=== PATIENT | female | born 1955 | race Caucasian/White ===

== ENCOUNTER 2021-02-22 10:44 | Outpatient (REF) | payer BC, SELFPAY ==
[2021-02-22 14:35] LABS: Cholesterol 231 mg/dL; HDL Cholesterol 71 mg/dL; LDL Cholesterol Calculated 149 mg/dl; Triglycerides 59 mg/dL
[2021-02-22 14:57] LABS: Vitamin D 25-OH Total 44.1 ng/mL (>30)
[2021-02-25 13:40] LABS: Calcium (PTHI) 8.9 mg/dL (8.6-10.4); PTHI 38 pg/mL (14-64)
== END 2021-02-22 10:45 | disposition home or self-care (01) ==
LOC: HO.HMGCLDS 10:44
PROVIDERS: PCP Nurse Practitioner Adult Health; Visit Provider Nurse Practitioner Adult Health
DX: Z00.00 Encounter for general adult medical examination without abnormal findings (principal); Z12.11 Encounter for screening for malignant neoplasm of colon; M81.0 Age-related osteoporosis without current pathological fracture; E55.9 Vitamin D deficiency, unspecified
CPT/HCPCS: 36415; 80061; 82306; 83970

== ENCOUNTER 2021-03-30 09:58 | Outpatient (REF) | payer BC, SELFPAY ==
[2021-03-30 11:31] LABS: Anion Gap 13 (12-20); Blood Urea Nitrogen 9 mg/dL (9-16); Carbon Dioxide 24 mmol/L (22-29); Chloride 107 mmol/L (96-108); Estimated Glomerular Filt Rate > 60; Glucose Random 92 mg/dL (60-115); Potassium 4.2 mmol/L (3.3-5.1); Sodium 140 mmol/L (135-145)
== END 2021-03-30 09:59 | disposition home or self-care (01) ==
LOC: HO.HMGCLDS 09:58
PROVIDERS: PCP Nurse Practitioner Adult Health; Visit Provider Nurse Practitioner Adult Health
DX: Z12.11 Encounter for screening for malignant neoplasm of colon (principal); I10 Essential (primary) hypertension
CPT/HCPCS: 36415; 80048

== ENCOUNTER 2021-04-01 | Outpatient (REF) | payer BC, SELFPAY ==
[2021-04-02 15:18] LABS: FIT1 NEGATIVE (NEGATIVE); FIT2 POSITIVE (NEGATIVE)
[2021-04-02 15:19] LABS: FIT Int Ctl YES
== END 2021-04-01 00:01 | disposition home or self-care (01) ==
LOC: HO.LNP
PROVIDERS: Visit Provider Nurse Practitioner Adult Health
DX: Z12.11 Encounter for screening for malignant neoplasm of colon (principal)
CPT/HCPCS: 82274

== ENCOUNTER 2021-08-07 18:04 | Observation (INO) | payer BC, SELFPAY ==
[2021-08-07] VITALS (7 sets, daily range): BP systolic 106–138; BP diastolic 50–88; PULSE 58–71; RESP 15–20; TEMP 36.8; O2SAT 97–100; BMI 25.3
--- NOTE | ~2021-08-07 | XR_ITS ---
EXAMINATION: XR CHEST CLINICAL INFORMATION: Syncopal episode. COMPARISON: None. TECHNIQUE: AP view of the chest was obtained. FINDINGS: Normal cardiomediastinal silhouette. Increased interstitial prominence more noticeable in the lower lungs. No pleural effusions or pneumothorax. No acute osseous abnormalities. Visualized upper abdomen is within normal limits. XR/XR chest 1V IMPRESSION: Mildly increased interstitial prominence in the lower lungs, right greater than left which are nonspecific and could be associated with subsegmental atelectasis or bronchial wall thickening in the setting of asthma, bronchitis, reactive airways disease or atypical infections. No focal consolidation.
--- NOTE | ~2021-08-07 | CT_ITS ---
EXAMINATION: CT HEAD WITHOUT CONTRAST CT CERVICAL SPINE WITHOUT CONTRAST CLINICAL INFORMATION: Reason for Exam syncope. +hit head COMPARISON: CT of the head done on 06/14/2011. TECHNIQUE: Imaging was performed from the skull base to vertex without intravenous administration of contrast. In addition, helical noncontrast CT imaging was acquired through the cervical spine and source images were reviewed along with axial reconstructions and sagittal and coronal MPRs. This CT examination was performed using dose optimization techniques as appropriate, variously including the following: *Automated exposure control. *Adjustment of mA and/or kV according to patient size (this includes techniques or standardized protocols for targeted exams where dose is matched to indication/reason for exam; i.e. extremities or head). *Use of iterative reconstruction technique. Total exam dose-length product 936.0 mGy-cm FINDINGS: HEAD: No intracranial mass, hemorrhage, or midline shift is visualized. The ventricles and sulci are age-appropriate. No extra-axial collections are identified. Stable prominent extra-axial space is noted around both frontal lobes, unchanged since 06/14/2011. The paranasal sinuses and mastoid air cells are well aerated. CERVICAL SPINE: Reversal of midcervical lordosis and moderate to severe multilevel degenerative spondylosis related changes are noted at C4-C5 and C5-C6 and C6-C7. Moderate diffuse osteopenia. 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 There is no evidence of acute cervical spine fracture. Vertebral bodies remain normal in height, and alignment is anatomic. No prevertebral or paravertebral soft tissue abnormality is identified. Limited assessment of the lung apices is remarkable for presence of biapical pleuroparenchymal opacities, most consistent with pleural parenchymal scar. Note is also made of underlying emphysematous disease within the visualized both lung apices. CT/CT cervical spine wo con IMPRESSION: 1. No acute intracranial pathology. Stable prominent extra-axial space around both frontal lobes, unchanged since 06/14/2011. 2. No CT evidence of acute cervical spine fracture or traumatic subluxation.
--- NOTE | 2021-08-07 18:37 | ECG_ITS ---
Test Reason : SYNCOPE Blood Pressure : / mmHG Vent. Rate : 064 BPM Atrial Rate : 064 BPM P-R Int : 128 ms QRS Dur : 100 ms QT Int : 396 ms P-R-T Axes : 057 061 070 degrees QTc Int : 408 ms Normal sinus rhythm Normal ECG When compared with ECG of 13-AUG-2003 01:05, No significant change was found Referred By: Erica Monge Electronically Signed By:GISELA BURROWS
--- NOTE | 2021-08-07 19:05 | ED_ITS ---
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 reports went inside and laid down then returned outside to farm, and felt lightheaded, sat on stool and syncopized with +head injury. Patient does not remember all events, heard fall and found patient on ground. Denies taking anticoagulation. Denies headache being maximal at onset, or headache at present, denies lightheadedness at present. Also reports exertional SOB, chest discomfort and nausea. Denies fever, chills, vision change/loss, abdominal pain, fever/chills MD elicited complaint: lightheadedness Related Data Home Medications Medication Instructions Recorded Confirmed carisoprodol 350 mg tablet 1 tab PO BEDTIME PRN 08/07/21 08/07/21 cholecalciferol (vitamin D3) 50 50 mcg PO DAILY 08/07/21 08/07/21 mcg (2,000 unit) tablet lisinopril 5 mg tablet 1 tab PO DAILY 08/07/21 08/07/21 Allergies Allergy/AdvReac Type Severity Reaction Status Date / Time morphine Allergy Unknown Itchiness Verified 01/31/19 00:00 From DURAMORPH Allergy Severe HIVES Uncoded 03/22/20 15:09 Effexor Allergy Unknown Itchiness Uncoded 01/31/19 00:00 Flexeril Allergy Unknown Itchiness Uncoded 01/31/19 00:00 From EFFEXOR Allergy Unknown UNKNOWN Uncoded 03/22/20 15:09 Review of Systems Verdana 4l Review of Systems: Verdana 4d Verdana 4d Constitutional: No Fever, No Chills, No Fatigue, No Malaise ENT/Mouth: No Ear Pain, No Nasal Congestion, No sore throat, No Swallowing Difficulty Eyes: No Eye Pain, No Swelling, No Vision Changes Cardiovascular: + Chest Pain, + SOB, No EdemaEdema, No Palpitations Respiratory: No Cough, No Dyspnea Gastrointestinal: + Nausea, No Vomiting, No Diarrhea, No Constipation, No Abdominal pain Genitourinary: No Dysuria, No Urinary Frequency, No Urgency, No Urinary Flow Changes Musculoskeletal: No joint pain, No Myalgias, No Joint Swelling Skin: No Skin Lesions, No rash Neuro: No Weakness, No Numbness, + Paresthesias, + Loss of Consciousness, + Lightheadedness, + Headache Yes all other systems are reviewed and are negative Neurologic: Denies Abnormal speech present FORMERLY [facility], [facility]–1983 Past Medical History Attestation statement: The following information was validated with the patient. Social History Social History Advance Directives: No Advance Directives Information Provided: No Patient : No Physical Exam Verdana 4l Vital Signs: Verdana 4d Verdana 4d Vital Signs: Verdana 4d Verdana 4Bd Last Vital Signs Verdana 4d Credit Card Interviewer New 4d Credit Card Interviewer New 4d Temp 98.3 F 08/07/21 21:27 Credit Card Interviewer New 4d Pulse 58 08/07/21 23:22 Credit Card Interviewer New 4d Resp 16 08/07/21 23:22 BP 106/88 08/07/21 23:22 Pulse Ox 97 08/07/21 23:22 BMI result Body Mass Index 25.3 Const: General: cooperative, healthy appearing, comfortable, no acute distress, well developed, alert and awake Orientation/consciousness: patient oriented x3 Limitations: no limitations HENMT: Other: Small abrasion to right side of nose Head: Yes normal to inspection and Yes atraumatic Ears: hearing grossly normal bilaterally General nose exam: Normal external nose present Face and sinus: Yes normal facial exam Throat: Yes posterior oropharynx normal, Yes tonsils normal and Yes uvula midline Eyes: General: appearance normal, both eyes and all related structures EOM: EOMs intact bilaterally Neck: Other: No midline cervical spinous tenderness Neck: Yes normal visual inspection, Yes full ROM and Yes no meningeal signs Chest: Chest palpation & inspection: normal inspection of the chest, no crepitus and no tenderness Resp: Effort & Inspection: normal respiratory effort Auscultation: clear to auscultation bilaterally, no rales, no rhonchi and no wheezes Cardio: Rate: regular rate Heart sounds: S1 normal heart sound present and S2 normal heart sound present GI: Inspection: Yes normal to inspection Palpation (GI): Soft to palpation, nontender, no guarding and not rigid Skin: Rashes: no rashes Neuro: General: patient oriented x3, gait normal, tone normal, moves all extremities, no meningeal signs, no focal motor deficits and CN's II-XI intact bilaterally Cranial nerves: Yes CN's II-XII intact bilaterally and Yes Bilaterally intact EOM present Cognition (Neuro): normal cognition Speech: No Abnormal speech present Motor exam (neuro): 5/5 motor strength present throughout, Pronator motor function not present and no tremor noted Coordination: [id number] test normal Romberg Test: Negative Extrem: General: Yes normal to inspection and Yes no pedal edema Course Course Course Narrative: -1932--XR chest 1V IMPRESSION: Mildly increased interstitial prominence in the lower lungs, right greater than left which are nonspecific and could be associated with subsegmental atelectasis or bronchial wall thickening in the setting of asthma, bronchitis, reactive airways disease or atypical infections. No focal consolidation. -2029--no leukocytosis. H&H stable. Labs otherwise unremarkable. Troponin 3.9 > will obtain 3 hour repeat. Labs otherwise unremarkable. UA negative -orthostatic vital signs negative CT head/brain wo con/CT cervical spine wo con IMPRESSION: 1. No acute intracranial pathology. Stable prominent extra-axial space around both frontal lobes, unchanged since 06/14/2011. 2. No CT evidence of acute cervical spine fracture or traumatic subluxation. >2132--on re-evaluation patient reports slight symptomatic improvement. Admits has been increasingly SOB recently. 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 reports went inside and laid down then returned outside to fa , and felt lightheaded, sat on stool and syncopized with +head injury. On exam vital signs stable, NAD/nontoxic appearing, no focal neuro deficits. Concern for metabolic/infectious etiology vs ACS vs vasovagal vs ICH. Lower concern for SAH Plan: EKG, labs, UA, head/C-spine CT, CXR, IVF, orthostatics, re-evaluate Medical Records Attestation: I reviewed the patient's medical records. Lab Data Attestation: I reviewed the patient's lab results. Result diagrams: 08/07/21 19:30 08/07/21 19:30 Labs: Lab Results 08/07/21 08/07/21 08/07/21 Range/Units 19:28 19:30 19:30 WBC 10.2 (4.8-10.8) X10*3/uL RBC 4.41 (4.20-5.50) X10*6/uL Hgb 13.5 (12.0-16.0) g/dl Hct 39.6 (37.0-47.0) % MCV 89.8 (80.0-98.0) fL MCH 30.6 (27.0-33.0) pg MCHC 34.1 (31.0-35.0) g/dl RDW 11.8 (11.0-16.0) % Plt Count 289 (160-400) X10*3/uL MPV 9.4 (9.4-12.3) fL Immature Gran % (Auto) 0.4 (0.0-0.4) % Neut % (Auto) 80.2 H (45-73) % Lymph % (Auto) 13.3 L (20-40) % [place] % (Auto) 5.2 (2-11) % Eos % (Auto) 0.3 (0-4) % Baso % (Auto) 0.6 (0-2) % Lymph # (Auto) 1.4 (1.2-4.9) X10*3/uL [place] # (Auto) 0.5 (0.1-1.2) X10*3/uL Eos # (Auto) 0.0 (0.0-0.4) X10*3/uL Baso # (Auto) 0.1 (0.0-0.2) X10*3/uL Abs Immat Gran (auto) 0.04 H (0.00-0.03) X10*3/uL Absolute Neuts (auto) 8.2 (2.0-8.3) x10*3/uL Absolute Nucleated RBC 0.000 (0.0-0.012) X10*3/uL Nucleated RBC % (auto) 0.0 (0.0-0.2) /100WBC D-Dimer High Sensitivty NG/ML Sodium 138 (135-145) mmol/L Potassium 4.1 (3.3-5.1) mmol/L Chloride 106 (96-108) mmol/L Carbon Dioxide 28 (22-29) mmol/L Anion Gap 8 L (12-20) BUN 13 (9-16) mg/dL Creatinine 0.72 (0.5-1.4) mg/dL Estim Creat Clear Calc 68.7 Estimated GFR > 60 Random Glucose 90 (60-115) mg/dL Calcium 8.8 (8.4-10.2) mg/dL Magnesium 1.9 (1.6-2.6) mg/dL Total Bilirubin 0.5 (0.0-1.0) mg/dL Direct Bilirubin 0.2 (0.0-0.5) mg/dL AST 15 (5-31) U/L ALT 12 (0-31) U/L Alkaline Phosphatase 52 (39-117) U/L Troponin I High Sens (<3.5-17.0) ng/L B-Natriuretic Peptide (<100) pg/mL Total Protein 6.4 L (6.5-8.0) g/dL Albumin 3.7 (3.5-5.0) g/dL Lipase 16 (8-78) U/L TSH 1.92 (0.32-4.0) uIU/mL Urine Color Urine Appearance Urine pH (5.0-8.0) Ur Specific [place] (1.005-1.025) Urine Protein (NEG-TRACE) MG/DL Urine Glucose (UA) (NEG) MG/DL Urine Ketones (NEG) MG/DL Urine Blood (NEG) Urine Nitrite (NEG) Ur Leukocyte Esterase (NEG) Urine RBC (0) /HPF Urine WBC (0-4) /HPF Ur Squamous Epith Cells /LPF Urine Bacteria /LPF COVID-19 (RADHA) Negative (Negative) COVID-19 Clin Com See Note 08/07/21 08/07/21 08/07/21 Range/Units 19:30 19:45 23:01 WBC (4.8-10.8) X10*3/uL RBC (4.20-5.50) X10*6/uL Hgb (12.0-16.0) g/dl Hct (37.0-47.0) % MCV (80.0-98.0) fL MCH (27.0-33.0) pg MCHC (31.0-35.0) g/dl RDW (11.0-16.0) % Plt Count (160-400) X10*3/uL MPV (9.4-12.3) fL Immature Gran % (Auto) (0.0-0.4) % Neut % (Auto) (45-73) % Lymph % (Auto) (20-40) % [place] % (Auto) (2-11) % Eos % (Auto) (0-4) % Baso % (Auto) (0-2) % Lymph # (Auto) (1.2-4.9) X10*3/uL [place] # (Auto) (0.1-1.2) X10*3/uL Eos # (Auto) (0.0-0.4) X10*3/uL Baso # (Auto) (0.0-0.2) X10*3/uL Abs Immat Gran (auto) (0.00-0.03) X10*3/uL Absolute Neuts (auto) (2.0-8.3) x10*3/uL Absolute Nucleated RBC (0.0-0.012) X10*3/uL Nucleated RBC % (auto) (0.0-0.2) /100WBC D-Dimer High Sensitivty NG/ML Sodium (135-145) mmol/L Potassium (3.3-5.1) mmol/L Chloride (96-108) mmol/L Carbon Dioxide (22-29) mmol/L Anion Gap (12-20) BUN (9-16) mg/dL Creatinine (0.5-1.4) mg/dL Estim Creat Clear Calc Estimated GFR Random Glucose (60-115) mg/dL Calcium (8.4-10.2) mg/dL Magnesium (1.6-2.6) mg/dL Total Bilirubin (0.0-1.0) mg/dL Direct Bilirubin (0.0-0.5) mg/dL AST (5-31) U/L ALT (0-31) U/L Alkaline Phosphatase (39-117) U/L Troponin I High Sens 3.9 4.3 (<3.5-17.0) ng/L B-Natriuretic Peptide 28 (<100) pg/mL Total Protein (6.5-8.0) g/dL Albumin (3.5-5.0) g/dL Lipase (8-78) U/L TSH (0.32-4.0) uIU/mL Urine Color YELLOW Urine Appearance CLEAR Urine pH 5.5 (5.0-8.0) Ur Specific [place] 1.015 (1.005-1.025) Urine Protein NEG (NEG-TRACE) MG/DL Urine Glucose (UA) NEG (NEG) MG/DL Urine Ketones NEG (NEG) MG/DL Urine Blood NEG (NEG) Urine Nitrite NEG (NEG) Ur Leukocyte Esterase 1+ H (NEG) Urine RBC 0 (0) /HPF Urine WBC 1-4 (0-4) /HPF Ur Squamous Epith Cells 1+ /LPF Urine Bacteria 1+ /LPF COVID-19 (RADHA) (Negative) COVID-19 Clin Com 08/07/21 Range/Units 23:01 WBC (4.8-10.8) X10*3/uL RBC (4.20-5.50) X10*6/uL Hgb (12.0-16.0) g/dl Hct (37.0-47.0) % MCV (80.0-98.0) fL MCH (27.0-33.0) pg MCHC (31.0-35.0) g/dl RDW (11.0-16.0) % Plt Count (160-400) X10*3/uL MPV (9.4-12.3) fL Immature Gran % (Auto) (0.0-0.4) % Neut % (Auto) (45-73) % Lymph % (Auto) (20-40) % [place] % (Auto) (2-11) % Eos % (Auto) (0-4) % Baso % (Auto) (0-2) % Lymph # (Auto) (1.2-4.9) X10*3/uL [place] # (Auto) (0.1-1.2) X10*3/uL Eos # (Auto) (0.0-0.4) X10*3/uL Baso # (Auto) (0.0-0.2) X10*3/uL Abs Immat Gran (auto) (0.00-0.03) X10*3/uL Absolute Neuts (auto) (2.0-8.3) x10*3/uL Absolute Nucleated RBC (0.0-0.012) X10*3/uL Nucleated RBC % (auto) (0.0-0.2) /100WBC D-Dimer High Sensitivty < 150 NG/ML Sodium (135-145) mmol/L Potassium (3.3-5.1) mmol/L Chloride (96-108) mmol/L Carbon Dioxide (22-29) mmol/L Anion Gap (12-20) BUN (9-16) mg/dL Creatinine (0.5-1.4) mg/dL Estim Creat Clear Calc Estimated GFR Random Glucose (60-115) mg/dL Calcium (8.4-10.2) mg/dL Magnesium (1.6-2.6) mg/dL Total Bilirubin (0.0-1.0) mg/dL Direct Bilirubin (0.0-0.5) mg/dL AST (5-31) U/L ALT (0-31) U/L Alkaline Phosphatase (39-117) U/L Troponin I High Sens (<3.5-17.0) ng/L B-Natriuretic Peptide (<100) pg/mL Total Protein (6.5-8.0) g/dL Albumin (3.5-5.0) g/dL Lipase (8-78) U/L TSH (0.32-4.0) uIU/mL Urine Color Urine Appearance Urine pH (5.0-8.0) Ur Specific [place] (1.005-1.025) Urine Protein (NEG-TRACE) MG/DL Urine Glucose (UA) (NEG) MG/DL Urine Ketones (NEG) MG/DL Urine Blood (NEG) Urine Nitrite (NEG) Ur Leukocyte Esterase (NEG) Urine RBC (0) /HPF Urine WBC (0-4) /HPF Ur Squamous Epith Cells /LPF Urine Bacteria /LPF COVID-19 (RADHA) (Negative) COVID-19 Clin Com ECG Data Attestation: I personally reviewed and interpreted this ECG as follows: ECG interpretation date: 08/07/21 ECG interpretation time: 18:52 Prior ECG tracings: available for review Interpretation: EKG normal sinus rhythm at a rate of 64. NM interval 128. QRS 100. QTC 408. Unchanged from priors. No STEMI Discharge Plan Discharge Clinical Impression: Syncope Patient Disposition: Admitted As Inpatient
[2021-08-07] MEDS: 0.9 % Sodium Chloride 1,000 ML 999 ML IV (19:23)
[2021-08-07] MEDS: ondansetron HCL 4 MG/2 ML VIAL IVPUSH (19:25)
[2021-08-07 19:36] LABS: MANUAL DIFF FLAG NO
[2021-08-07 19:38] LABS: Basophils Absolute Auto 0.1 X10*3/uL (0.0-0.2); Basophils Percent Auto 0.6 % (0-2); Eosinophils Percent Auto 0.3 % (0-4); Hematocrit 39.6 % (37.0-47.0); Hemoglobin 13.5 g/dl (12.0-16.0); Imm Gran Abs Auto 0.04 X10*3/uL (0.00-0.03); Imm Gran Pct Auto 0.4 % (0.0-0.4); Lymphocytes Absolute Auto 1.4 X10*3/uL (1.2-4.9); Lymphocytes Percent Auto 13.3 % (20-40); Mean Corpuscular HGB Conc 34.1 g/dl (31.0-35.0); Mean Corpuscular Hemoglobin 30.6 pg (27.0-33.0); Mean Corpuscular Volume 89.8 fL (80.0-98.0); Mean Platelet Volume 9.4 fL (9.4-12.3); Monocytes Absolute Auto 0.5 X10*3/uL (0.1-1.2); Monocytes Percent Auto 5.2 % (2-11); Neutrophils Absolute Auto 8.2 x10*3/uL (2.0-8.3); Neutrophils Percent Auto 80.2 % (45-73); Platelet Count 289 X10*3/uL (160-400); Red Blood Count 4.41 X10*6/uL (4.20-5.50); Red Cell Distribution Width 11.8 % (11.0-16.0); White Blood Count 10.2 X10*3/uL (4.8-10.8)
[2021-08-07 19:51] LABS: COVID-19 Test Negative (Negative)
[2021-08-07 19:53] LABS: Appearance Urine CLEAR; Color Urine YELLOW; Glucose Urine UA NEG (NEG); Leukocyte Esterase Urine 1+ (NEG); Nitrite Urine NEG (NEG); PH 5.5 (5.0-8.0); Specific Gravity - Urine 1.015 (1.005-1.025); UACC Culture Trigger YES; Urine Blood NEG (NEG); Urine Ketones NEG (NEG); Urine Protein NEG (NEG-TRACE)
[2021-08-07 19:56] LABS: Alanine Aminotransferase 12 U/L (0-31); Albumin Level 3.7 g/dL (3.5-5.0); Alkaline Phosphatase 52 U/L (39-117); Anion Gap 8 (12-20); Aspartate Amino Transferase 15 U/L (5-31); Bilirubin Direct 0.2 mg/dL (0.0-0.5); Bilirubin Total 0.5 mg/dL (0.0-1.0); Blood Urea Nitrogen 13 mg/dL (9-16); Calcium 8.8 mg/dL (8.4-10.2); Carbon Dioxide 28 mmol/L (22-29); Chloride 106 mmol/L (96-108); Creatinine Clr Calc Pharmacy 68.7; Estimated Glomerular Filt Rate > 60; Glucose Random 90 mg/dL (60-115); Lipase 16 U/L (8-78); Magnesium 1.9 mg/dL (1.6-2.6); Potassium 4.1 mmol/L (3.3-5.1); Sodium 138 mmol/L (135-145); Total Protein 6.4 g/dL (6.5-8.0)
[2021-08-07 19:58] LABS: B Type Natriuretic Peptide 28 pg/mL (<100); Troponin-I High Sensitivity 3.9 ng/L (<3.5-17.0)
[2021-08-07 20:04] LABS: Bacteria Urine 1+ /LPF; RBC Urine 0 /HPF (0); Squamous Epithelial Cell Urine 1+ /LPF
--- NOTE | 2021-08-07 21:53 | PHA.MEDREC ---
Pharmacy Consult ? Medication Reconciliation Pharmacy has completed the medication reconciliation.
--- NOTE | 2021-08-07 22:50 | P.HPHOSP_ITS ---
History of Present Illness Date of Service: 08/07/21 Chief Complaint: Syncope 65-year-old female with a past medical history of hypertension presented to the hospital with a chief complaint of syncope. Patient reports that she has not been feeling well all day today. Has been having intermittent episodes of lightheadedness is dizziness. She took a nap and later when she was sitting in a chair she felt lightheaded and fell onto the ground, loss conscious briefly, no seizure-like activity, no confusion. Reports he has intermittent chest discomfort. Denies any numbness tingling or focal weakness. Denies any nausea vomiting or diarrhea. Denies any neck pain, back pain, hip pain. Review of all other systems is negative except mentioned above ER course: for ER team, patient's exam was nonfocal, CT head and CT cervical spine showed no acute findings. EKG nonischemic. Troponin negative. Admitted to the hospital for Further management PMFSH Pertinent family history: reviewed; Social History Advance Directives: No Advance Directives Information Provided: No Patient : No Meds Allergies Allergy/AdvReac Type Severity Reaction Status Date / Time morphine Allergy Unknown Itchiness Verified 01/31/19 00:00 From DURAMORPH Allergy Severe HIVES Uncoded 03/22/20 15:09 Effexor Allergy Unknown Itchiness Uncoded 01/31/19 00:00 Flexeril Allergy Unknown Itchiness Uncoded 01/31/19 00:00 From EFFEXOR Allergy Unknown UNKNOWN Uncoded 03/22/20 15:09 Active Medications: Current Medications Acetaminophen (Acetaminophen 325 Mg Tablet) 650 mg PO Q6H PRN PRN Reason: Pain, Mild (Pain Scale 1-3) Enoxaparin Sodium (Enoxaparin Sodium 40 Mg/0.4 Ml Syringe) 40 mg SUBCUT Q24H STAN Sodium Chloride (Ns) 1,000 mls @ 100 mls/hr IVCONT .Q10H STAN Melatonin (Melatonin 3 Mg Tablet) 6 mg PO BEDTIME PRN PRN Reason: Insomnia Pharmacy Consult (Consult Rx Perform Med Rec) 1 each MISCELLANE ONCE PRN PRN Reason: Consult order Senna (Sennosides 8.6 Mg Tablet) 17.2 mg PO BEDTIME PRN PRN Reason: Constipation Sodium Chloride (0.9 % Sodium Chloride Flush 3 Ml Syringe) 3 ml IVFLUSH QSHIFT STAN Home Medications Medication Instructions Recorded Confirmed Last Taken Type carisoprodol 350 1 tab PO BEDTIME 08/07/21 08/07/21 Unknown History mg tablet PRN cholecalciferol 50 mcg PO DAILY 08/07/21 08/07/21 08/07/21 History (vitamin D3) 50 mcg (2,000 unit) tablet lisinopril 5 mg 1 tab PO DAILY 08/07/21 08/07/21 08/07/21 History tablet Physical Exam Verdana 4l Vital Signs and Narrative: Verdana 4d Verdana 4d Vital Signs: Verdana 4d Verdana 4Bd Last Vital Signs Verdana 4d Oncology Rn New 4d Oncology Rn New 4d Temp 98.3 F 08/07/21 21:27 Oncology Rn New 4d Pulse 69 08/07/21 21:27 Oncology Rn New 4d Resp 20 08/07/21 21:27 BP 106/88 08/07/21 21:27 Pulse Ox 98 08/07/21 21:27 BMI result Body Mass Index 25.3 Gen: Appears be in no acute distress HEENT: NCAT, Moist mucosa. Pulmonary: Vesicular breath sounds, fair air entry CVS: Normal S1-S2 Abdomen: BS+, Soft, Nontender Extremities: Warm well perfused Neuro: Alert and awake. grossly nonfocal Results Labs CBC and Chem 7: 08/07/21 19:30 08/07/21 19:30 Labs: Laboratory Results - last 24 hr 08/07/21 08/07/21 08/07/21 19:28 19:30 19:30 MCV 89.8 MCH 30.6 MCHC 34.1 RDW 11.8 Plt Count 289 MPV 9.4 Immature Gran % (Auto) 0.4 Neut % (Auto) 80.2 H Lymph % (Auto) 13.3 L [place] % (Auto) 5.2 Eos % (Auto) 0.3 Baso % (Auto) 0.6 Lymph # (Auto) 1.4 [place] # (Auto) 0.5 Eos # (Auto) 0.0 Baso # (Auto) 0.1 Abs Immat Gran (auto) 0.04 H Absolute Neuts (auto) 8.2 Absolute Nucleated RBC 0.000 Nucleated RBC % (auto) 0.0 Anion Gap 8 L Estim Creat Clear Calc 68.7 Estimated GFR > 60 Random Glucose 90 Calcium 8.8 Magnesium 1.9 Total Bilirubin 0.5 Direct Bilirubin 0.2 AST 15 ALT 12 Alkaline Phosphatase 52 Troponin I High Sens B-Natriuretic Peptide Total Protein 6.4 L Albumin 3.7 Lipase 16 Urine Color Urine Appearance Urine pH Ur Specific [place] Urine Protein Urine Glucose (UA) Urine Ketones Urine Blood Urine Nitrite Ur Leukocyte Esterase Urine RBC Urine WBC Ur Squamous Epith Cells Urine Bacteria COVID-19 (RADHA) Negative COVID-19 Clin Com See Note 08/07/21 08/07/21 19:30 19:45 MCV MCH MCHC RDW Plt Count MPV Immature Gran % (Auto) Neut % (Auto) Lymph % (Auto) [place] % (Auto) Eos % (Auto) Baso % (Auto) Lymph # (Auto) [place] # (Auto) Eos # (Auto) Baso # (Auto) Abs Immat Gran (auto) Absolute Neuts (auto) Absolute Nucleated RBC Nucleated RBC % (auto) Anion Gap Estim Creat Clear Calc Estimated GFR Random Glucose Calcium Magnesium Total Bilirubin Direct Bilirubin AST ALT Alkaline Phosphatase Troponin I High Sens 3.9 B-Natriuretic Peptide 28 Total Protein Albumin Lipase Urine Color YELLOW Urine Appearance CLEAR Urine pH 5.5 Ur Specific [place] 1.015 Urine Protein NEG Urine Glucose (UA) NEG Urine Ketones NEG Urine Blood NEG Urine Nitrite NEG Ur Leukocyte Esterase 1+ H Urine RBC 0 Urine WBC 1-4 Ur Squamous Epith Cells 1+ Urine Bacteria 1+ COVID-19 (RADHA) COVID-19 Clin Com Imaging Radiologist's Impressions: Impressions Chest X-Ray 08/07/21 18:46 IMPRESSION: Mildly increased interstitial prominence in the lower lungs, right greater than left which are nonspecific and could be associated with subsegmental atelectasis or bronchial wall thickening in the setting of asthma, bronchitis, reactive airways disease or atypical infections. No focal consolidation. Cervical Spine CT 08/07/21 20:20 IMPRESSION: 1. No acute intracranial pathology. Stable prominent extra-axial space around both frontal lobes, unchanged since 06/14/2011. 2. No CT evidence of acute cervical spine fracture or traumatic subluxation. Head CT 08/07/21 20:20 IMPRESSION: 1. No acute intracranial pathology. Stable prominent extra-axial space around both frontal lobes, unchanged since 06/14/2011. 2. No CT evidence of acute cervical spine fracture or traumatic subluxation. Assessment and Plan (1) Syncope: Status: Acute (2) HTN (hypertension): Status: Acute Plan 65-year-old female with a past medical history of hypertension presented to the hospital with a chief complaint of syncope syncope: Exam nonfocal. CT head and CT cervical spine showed no acute findings. Monitor on telemetry Echocardiogram Cardiology consult for possible Holter /event monitor. Orthostatic vitals. chest discomfort: Atypical in nature. EKG nonischemic. Troponin negative. Will also obtain a D-dimer history of hypertension: Blood pressure on the normal side. Hold home lisinopril for now. DVT prophylaxis: Lovenox Code status: Full code Quality Stroke Does the patient have a stroke diagnosis?: No VTE Prior VTE?: No VTE Risk Level:: Medical - moderate - high VTE Device Contraindication: Treatment Not Indicated VTE Drug Contraindication: N/A - Med Ordered
[2021-08-07] MEDS: 0.9 % Sodium Chloride Flush 3 ML SYRINGE IVFLUSH (23:20)
[2021-08-07] MEDS: 0.9 % Sodium Chloride 1,000 ML 100 ML IVCONT (23:20)
[2021-08-07] MEDS: Enoxaparin Sodium 40 MG/0.4 ML SYRINGE SUBCUT (23:20)
[2021-08-07 23:25] LABS: Troponin-I High Sensitivity 4.3 ng/L (<3.5-17.0)
[2021-08-07 23:27] LABS: Thyroid Stimulating Hormone 1.92 uIU/mL (0.32-4.0)
[2021-08-08 00:03] LABS: D Dimer High Sensitivity < 150 NG/ML
[2021-08-08 03:38] LABS: Estimated Average Glucose 111 mg/dL; Hemoglobin A1C 125.7528 umol/L; Hemoglobin A1c % 5.5 %
[2021-08-08 04:26] LABS: MANUAL DIFF FLAG NO
[2021-08-08 04:29] LABS: Basophils Absolute Auto 0.1 X10*3/uL (0.0-0.2); Basophils Percent Auto 0.8 % (0-2); Eosinophils Absolute Auto 0.1 X10*3/uL (0.0-0.4); Eosinophils Percent Auto 0.9 % (0-4); Hematocrit 38.4 % (37.0-47.0); Hemoglobin 13.1 g/dl (12.0-16.0); Imm Gran Abs Auto 0.01 X10*3/uL (0.00-0.03); Imm Gran Pct Auto 0.1 % (0.0-0.4); Lymphocytes Absolute Auto 2.6 X10*3/uL (1.2-4.9); Lymphocytes Percent Auto 32.5 % (20-40); Mean Corpuscular HGB Conc 34.1 g/dl (31.0-35.0); Mean Corpuscular Hemoglobin 30.9 pg (27.0-33.0); Mean Corpuscular Volume 90.6 fL (80.0-98.0); Mean Platelet Volume 9.4 fL (9.4-12.3); Monocytes Absolute Auto 0.5 X10*3/uL (0.1-1.2); Monocytes Percent Auto 6.4 % (2-11); Neutrophils Absolute Auto 4.8 x10*3/uL (2.0-8.3); Neutrophils Percent Auto 59.3 % (45-73); Platelet Count 282 X10*3/uL (160-400); Red Blood Count 4.24 X10*6/uL (4.20-5.50)
[2021-08-08 04:48] LABS: Cholesterol 196 mg/dL; HDL Cholesterol 56 mg/dL; LDL Cholesterol Calculated 123 mg/dl; Triglycerides 89 mg/dL
[2021-08-08] MEDS: Acetaminophen 325 MG TABLET 650 MG PO ×2 (06:29→21:50)
[2021-08-08 07:43] VITALS: BP 126/64; PULSE 61; RESP 18; TEMP 36.9; O2SAT 96
--- NOTE | 2021-08-08 08:17 | PC.NURSE ---
Pt received from mold shifter: Pt AOX4 and offers mild c/o L clavicular pain. NSR noted and lungs clear. Pt abd soft and non-tender. Pt to ECHO this morning. Pending cardiology consult.
--- NOTE | 2021-08-08 08:30 | CA_ITS ---
Transthoracic Echocardiogram Patient (Last, First, Middle): Dolores Wyatt, Gender: Female Date of : 1955 Age: 65 Procedure Date: 08/08/2021 Procedure Type: Transthoracic Echocardiogram Location: ER Height: 157.48 cm Weight: 62.6 kg BSA: 1.63 m2 Heart Rate: bpm BP: 106 / 88 mmHg Labelling Machine Operator: [email or web address] Referring MD: David Kang MD Symptoms: syncope Study Quality: Good ECG Rhythm: Sinus Conclusions: - The left ventricular systolic function is normal. The calculated ejection fraction is 64% by biplane method. - No obvious valvular pathology seen on this study. Findings Left Ventricle Normal left ventricular cavity size. There is normal left ventricular wall thickness. The left ventricular systolic function is normal. The calculated ejection fraction is 64% by biplane method. There is no evidence of regional wall motion abnormalities. Diastolic function is normal for age. LV peak GLS -17.8%. Right Ventricle Normal right ventricular cavity size and systolic function. Atria Both atria are normal in size. Aortic Valve There is a normal trileaflet aortic valve. There is no aortic valve stenosis. There is no aortic valve regurgitation. Mitral Valve The mitral valve appears normal. There is trace mitral valve regurgitation. There is no mitral valve stenosis. Pulmonic Valve The pulmonic valve was not well visualized. Tricuspid Valve Normal tricuspid valve structure. There is no tricuspid valve regurgitation. There is no evidence of pulmonary hypertension. Great Vessels The aortic annulus, sinuses of valsalva, asc aorta, and aortic arch are normal in size. Venous The inferior vena cava is normal in size and collapses greater than 50% with inspiration. Pericardium/Pleural There is no evidence of pericardial effusion. Prior Study Comparison No prior study available for comparison. Recommendations, Care & Conclusions No obvious valvular pathology seen on this study. Measurements 2D Linear Measurements IVSd: 0.91 0.6-0.9/0.6-1.0 cm LVIDd: 4.38 3.9-5.3/4.2-5.9 cm LVIDd Index: 2.69 2.4-3.2/2.2-3.1 cm/m2 LVIDs: 2.75 2.0-3.6 cm LVPWd: 0.82 0.7-1.1 cm Ao Root: 3.10 2.1-3.5 cm LA Diam: 2.90 2.7-3.8/3.0-4.0 cm LAIDs Index: 1.78 1.5-2.3 cm/m2 LV Mass: 150.18 67-162/88-224 g LV Mass Index: 92.14 43-95/49-115 g/m2 LVOT Diam: 2.10 3.0+(-)1.3 cm 2D Systolic Function EF 4C: 61.10 >55% EF 2C: 66.70 >55% EF BiP: 64.20 >55% Mitral Valve MV Pk E: 1.02 MV PK A: 0.80 MV Decel Time: 257.00 E/A: 1.30 E'Lateral: 8.49 E'Medial: 11.40 E/E' Med: 8.90 E/E' Lat: 12.00 PHT: 75.00 MVA PHT: 2.93 Decel [place]: 3.95 Aortic Valve AoV Pk Rufino: 1.12 AoV Mn Rufino: 0.80 AoV VTI: 0.25 AoV Pk Grad: 5.00 Aov Mn Grad: 3.00 FELISHA Cont.VTI: 3.06 LVOT LVOT Pk Rufino: 0.95 LVOT Mn Rufino: 0.63 LVOT VTI: 0.22 LVOT Pk Grad: 4.00 LVOT Mn Grad: 2.00 LVOT Diam: 2.10 LVOT Area: 3.46 Diastolic Function MV Pk E: 1.02 MV Pk A: 0.80 E/A: 1.30 E'Medial: 11.40 E/E' Med: 8.90 E' Laterial: 8.49 E/E' Lat: 12.00 Right Ventricle TAPSE (mm): 19.00 TVS' Rufino: 11.00 Tricuspid Valve TR Pk Rufino: 1.67 TR Pk Grad: 11.00 RA Press: 8.00 RVSP: 19.00 Great Vessels Aorta Ao Root-2D: 3.10 2.0-3.7 cm Ao Asc: 3.00 2.1-3.4 cm Ao Arch: 2.40 Updated in Other Vendor System with Status of Final Robbi Herring MD electronically signed on 08/08/2021 11:42:34 AM with status of Final
[2021-08-08] MEDS: 0.9 % Sodium Chloride 1,000 ML 100 ML IVCONT ×2 (08:55→15:14)
[2021-08-08] MEDS: Cholecalciferol (Vitamin D3) 25 MCG TABLET 50 MCG PO (09:03)
--- NOTE | 2021-08-08 09:44 | MHC.CM.PN ---
PT REPORTS SHE LIVES WITH HER AND IS FULLY INDEPENDENT PT DENIES USE OF DME OR HOME/COMMUNITY SERVICES PT REPORTS SHE HAD THE MODERNA VACCINES AGAINST COVID-19 AND RECEIVED A BOOSTER IN JUNE PT CONFIRMS HER PCP IS MONICA POLK SHE ALSO SAYS SHE HAS A HCP COMPLETED NAMING HER , INO ([phone]) HER AGENT. OBSERVATION NOTICE WAS DELIVERED. A COPY WAS GIVEN TO PT AND ANOTHER WAS SENT TO [facility]. CURRENT DC PLAN IS HOME WITH NO SERVICES, FAMILY TO TRANSPORT
--- NOTE | 2021-08-08 10:29 | P.CONCA_ITS ---
History of Present Illness History of Present Illness Date of Service: 08/08/21 Chief complaint: syncope Narrative: This is a cardiology consultation regarding syncopal episode. Patient has history of hypertension and has apparently been on lisinopril for the last few months. She checks her blood pressures at home and they are generally normal range. Yesterday, she was not feeling well and apparently was having some headaches. Then she was sitting on a stool in the [place]. Then it seems that she fell forward and hit her face. No clear provoking factors. Subsequently, has been having some nausea. She has some dizziness today at different times, possibly somewhat postural. No prior syncopal episodes. No known cardiac problems otherwise. Review of Systems Verdana 4l Review of Systems: Verdana 4d Yes all other systems are reviewed and are negative Verdana 4l Cardiovascular: Verdana 4d Verdana 4d Cardiovascular: Verdana 4d Reports as per HPI, Reports no additional cardiovascular complaints, Denies acrocyanosis, Denies cool extremities, Denies painful fingertips, Denies chest pain, Denies chest pain at rest, Denies diaphoresis, DeniesDenies syncope, Denies irregular heart rhythm, Denies claudication, Denies leg edema, Reports lightheadedness, Denies palpitations and Denies dyspnea Respiratory: Respiratory: Denies dyspnea Neurologic: Denies syncope Endocrine: Endocrine: Denies palpitations PMF Past Medical History Medical History (Updated 08/08/21 @ 10:34 by Robbi Herring MD) Essential hypertension Family History Pertinent family history: No significant cardiac issues in the family. Social History Social History Advance Directives: No Advance Directives Information Provided: No Patient : No service: No Current occupational status: unemployed Meds Allergies Allergy/AdvReac Type Severity Reaction Status Date / Time morphine Allergy Unknown Itchiness Verified 01/31/19 00:00 From DURAMORPH Allergy Severe HIVES Uncoded 03/22/20 15:09 Effexor Allergy Unknown Itchiness Uncoded 01/31/19 00:00 Flexeril Allergy Unknown Itchiness Uncoded 01/31/19 00:00 From EFFEXOR Allergy Unknown UNKNOWN Uncoded 03/22/20 15:09 Active Medications: Current Medications Acetaminophen (Acetaminophen 325 Mg Tablet) 650 mg PO Q6H PRN PRN Reason: Pain, Mild (Pain Scale 1-3) Last Admin: 08/08/21 06:29 Dose: 650 mg Documented by: Enoxaparin Sodium (Enoxaparin Sodium 40 Mg/0.4 Ml Syringe) 40 mg SUBCUT Q24H [facility] Last Admin: 08/07/21 23:20 Dose: 40 mg Documented by: Sodium Chloride (Ns) 1,000 mls @ 100 mls/hr IVCONT .Q10H [facility] Last Admin: 08/08/21 08:55 Dose: 100 mls/hr Documented by: Melatonin (Melatonin 3 Mg Tablet) 6 mg PO BEDTIME PRN PRN Reason: Insomnia Pharmacy Consult (Consult Rx Perform Med Rec) 1 each MISCELLANE ONCE PRN PRN Reason: Consult order Senna (Sennosides 8.6 Mg Tablet) 17.2 mg PO BEDTIME PRN PRN Reason: Constipation Sodium Chloride (0.9 % Sodium Chloride Flush 3 Ml Syringe) 3 ml IVFLUSH [facility] Last Admin: 08/08/21 07:10 Dose: Not Given Documented by: Sodium Chloride (0.9 % Sodium Chloride Flush 3 Ml Syringe) 3 ml IVFLUSH [facility] Last Admin: 08/08/21 07:10 Dose: Not Given Documented by: Vitamin D (Cholecalciferol (Vitamin D3) 25 Mcg Tablet) 50 mcg PO DAILY [facility] Last Admin: 08/08/21 09:03 Dose: 50 mcg Documented by: Home Medications Medication Instructions Recorded Confirmed Last Taken Type carisoprodol 350 1 tab PO BEDTIME 08/07/21 08/07/21 Unknown History mg tablet PRN cholecalciferol 50 mcg PO DAILY 08/07/21 08/07/21 08/07/21 History (vitamin D3) 50 mcg (2,000 unit) tablet lisinopril 5 mg 1 tab PO DAILY 08/07/21 08/07/21 08/07/21 History tablet Physical Exam Verdana 4l Vital Signs: Verdana 4d Verdana 4d Vital Signs: Verdana 4d Verdana 4Bd Last Vital Signs Verdana 4d [employer] New 4d [employer] New 4d Temp 98.4 F 08/08/21 07:43 [employer] New 4d Pulse 61 08/08/21 07:43 [employer] New 4d Resp 18 08/08/21 07:43 BP 126/64 08/08/21 07:43 Pulse Ox 96 08/08/21 07:43 BMI result Body Mass Index 25.3 Const: General: no acute distress HENMT: Other: Unremarkable Neck: Neck: Yes normal visual inspection Chest: Chest palpation & inspection: normal inspection of the chest Resp: Auscultation: no crackles and no wheezes Cardio: Palpation: normal PMI Heart sounds: S1 normal heart sound present, S2 normal heart sound present, no gallops, no murmurs and no rubs GI: Palpation (GI): Soft to palpation Back/Spine/Pelvis: Other: unremarkable Skin: Lesions: other Neuro: Cranial nerves: Yes Other cranial nerve findings present Extrem: General: Yes other Psych: Mental Status: other Objective Labs and Meds Result diagrams: 08/08/21 04:22 08/07/21 19:30 Lab results: Laboratory Results - last 24 hr 08/07/21 08/07/21 08/07/21 19:28 19:30 19:30 WBC 10.2 RBC 4.41 Hgb 13.5 Hct 39.6 MCV 89.8 MCH 30.6 MCHC 34.1 RDW 11.8 Plt Count 289 MPV 9.4 Immature Gran % (Auto) 0.4 Neut % (Auto) 80.2 H Lymph % (Auto) 13.3 L [place] % (Auto) 5.2 Eos % (Auto) 0.3 Baso % (Auto) 0.6 Lymph # (Auto) 1.4 [place] # (Auto) 0.5 Eos # (Auto) 0.0 Baso # (Auto) 0.1 Abs Immat Gran (auto) 0.04 H Absolute Neuts (auto) 8.2 Absolute Nucleated RBC 0.000 Nucleated RBC % (auto) 0.0 D-Dimer High Sensitivty Sodium 138 Potassium 4.1 Chloride 106 Carbon Dioxide 28 Anion Gap 8 L BUN 13 Creatinine 0.72 Estim Creat Clear Calc 68.7 Estimated GFR > 60 Random Glucose 90 Estimat Average Glucose Hemoglobin A1c % Calcium 8.8 Magnesium 1.9 Total Bilirubin 0.5 Direct Bilirubin 0.2 AST 15 ALT 12 Alkaline Phosphatase 52 Troponin I High Sens B-Natriuretic Peptide Total Protein 6.4 L Albumin 3.7 Triglycerides Cholesterol LDL Cholesterol, Calc HDL Cholesterol Lipase 16 TSH 1.92 Urine Color Urine Appearance Urine pH Ur Specific [place] Urine Protein Urine Glucose (UA) Urine Ketones Urine Blood Urine Nitrite Ur Leukocyte Esterase Urine RBC Urine WBC Ur Squamous Epith Cells Urine Bacteria COVID-19 (RADHA) Negative COVID-19 Clin Com See Note 08/07/21 08/07/21 08/07/21 19:30 19:30 19:45 WBC RBC Hgb Hct MCV MCH MCHC RDW Plt Count MPV Immature Gran % (Auto) Neut % (Auto) Lymph % (Auto) [place] % (Auto) Eos % (Auto) Baso % (Auto) Lymph # (Auto) [place] # (Auto) Eos # (Auto) Baso # (Auto) Abs Immat Gran (auto) Absolute Neuts (auto) Absolute Nucleated RBC Nucleated RBC % (auto) D-Dimer High Sensitivty Sodium Potassium Chloride Carbon Dioxide Anion Gap BUN Creatinine Estim Creat Clear Calc Estimated GFR Random Glucose Estimat Average Glucose 111 Hemoglobin A1c % 5.5 Calcium Magnesium Total Bilirubin Direct Bilirubin AST ALT Alkaline Phosphatase Troponin I High Sens 3.9 B-Natriuretic Peptide 28 Total Protein Albumin Triglycerides Cholesterol LDL Cholesterol, Calc HDL Cholesterol Lipase TSH Urine Color YELLOW Urine Appearance CLEAR Urine pH 5.5 Ur Specific [place] 1.015 Urine Protein NEG Urine Glucose (UA) NEG Urine Ketones NEG Urine Blood NEG Urine Nitrite NEG Ur Leukocyte Esterase 1+ H Urine RBC 0 Urine WBC 1-4 Ur Squamous Epith Cells 1+ Urine Bacteria 1+ COVID-19 (RADHA) COVID-19 Clin Com 08/07/21 08/07/21 08/08/21 23:01 23:01 04:22 WBC 8.0 RBC 4.24 Hgb 13.1 Hct 38.4 MCV 90.6 MCH 30.9 MCHC 34.1 RDW 12.0 Plt Count 282 MPV 9.4 Immature Gran % (Auto) 0.1 Neut % (Auto) 59.3 Lymph % (Auto) 32.5 [place] % (Auto) 6.4 Eos % (Auto) 0.9 Baso % (Auto) 0.8 Lymph # (Auto) 2.6 [place] # (Auto) 0.5 Eos # (Auto) 0.1 Baso # (Auto) 0.1 Abs Immat Gran (auto) 0.01 Absolute Neuts (auto) 4.8 Absolute Nucleated RBC 0.000 Nucleated RBC % (auto) 0.0 D-Dimer High Sensitivty < 150 Sodium Potassium Chloride Carbon Dioxide Anion Gap BUN Creatinine Estim Creat Clear Calc Estimated GFR Random Glucose Estimat Average Glucose Hemoglobin A1c % Calcium Magnesium Total Bilirubin Direct Bilirubin AST ALT Alkaline Phosphatase Troponin I High Sens 4.3 B-Natriuretic Peptide Total Protein Albumin Triglycerides Cholesterol LDL Cholesterol, Calc HDL Cholesterol Lipase TSH Urine Color Urine Appearance Urine pH Ur Specific [place] Urine Protein Urine Glucose (UA) Urine Ketones Urine Blood Urine Nitrite Ur Leukocyte Esterase Urine RBC Urine WBC Ur Squamous Epith Cells Urine Bacteria COVID-19 (RADHA) COVID-19 Clin Com 08/08/21 04:22 WBC RBC Hgb Hct MCV MCH MCHC RDW Plt Count MPV Immature Gran % (Auto) Neut % (Auto) Lymph % (Auto) [place] % (Auto) Eos % (Auto) Baso % (Auto) Lymph # (Auto) [place] # (Auto) Eos # (Auto) Baso # (Auto) Abs Immat Gran (auto) Absolute Neuts (auto) Absolute Nucleated RBC Nucleated RBC % (auto) D-Dimer High Sensitivty Sodium Potassium Chloride Carbon Dioxide Anion Gap BUN Creatinine Estim Creat Clear Calc Estimated GFR Random Glucose Estimat Average Glucose Hemoglobin A1c % Calcium Magnesium Total Bilirubin Direct Bilirubin AST ALT Alkaline Phosphatase Troponin I High Sens B-Natriuretic Peptide Total Protein Albumin Triglycerides 89 Cholesterol 196 LDL Cholesterol, Calc 123 HDL Cholesterol 56 D Lipase TSH Urine Color Urine Appearance Urine pH Ur Specific [place] Urine Protein Urine Glucose (UA) Urine Ketones Urine Blood Urine Nitrite Ur Leukocyte Esterase Urine RBC Urine WBC Ur Squamous Epith Cells Urine Bacteria COVID-19 (RADHA) COVID-19 Clin Com ECG Interpretation: EKG shows sinus rhythm at 64/Min; no significant ST-T changes and otherwise unremarkable. Imaging Radiologist's impression: Impressions Chest X-Ray 08/07/21 18:46 IMPRESSION: Mildly increased interstitial prominence in the lower lungs, right greater than left which are nonspecific and could be associated with subsegmental atelectasis or bronchial wall thickening in the setting of asthma, bronchitis, reactive airways disease or atypical infections. No focal consolidation. Cervical Spine CT 08/07/21 20:20 IMPRESSION: 1. No acute intracranial pathology. Stable prominent extra-axial space around both frontal lobes, unchanged since 06/14/2011. 2. No CT evidence of acute cervical spine fracture or traumatic subluxation. Head CT 08/07/21 20:20 IMPRESSION: 1. No acute intracranial pathology. Stable prominent extra-axial space around both frontal lobes, unchanged since 06/14/2011. 2. No CT evidence of acute cervical spine fracture or traumatic subluxation. Assessment and Plan (1) Syncope: Status: Acute (2) Essential hypertension: Status: Acute Plan Unremarkable high sensitivity troponins. Cardiac BNP 28. No clear orthostatic blood pressure changes. Could be a vagal type episode related to occult viral infection. Telemetry, EKG are also unremarkable. May get an echocardiogram for further evaluation. Possibly, outpatient Holter monitor. Procedures Date of Service Date of Service: 08/08/21
--- NOTE | 2021-08-08 12:20 | HO.PM.IMPN ---
Subjective Subjective Date of Service: 08/08/21 Interval History: feeling better this morning denies lightheadedness or dizziness no chest pain, no shortness of breath, denies weakness numbness no speech impairment, no other acute issues since admission orthostatic blood pressures are stable, denies any recent bout of nausea vomiting or diarrhea has been compliant with antihypertensive medications. Review of Systems Review of Systems: Yes all other systems are reviewed and are negative Physical Exam Vital Signs: Vital Signs: Last Vital Signs Temp 98.4 F 08/08/21 07:43 Pulse 61 08/08/21 07:43 Resp 18 08/08/21 07:43 BP 126/64 08/08/21 07:43 Pulse Ox 96 08/08/21 07:43 BMI result Body Mass Index 25.3 Const: Other: General Awake alert, in no acute distress. face: small abrasion bridge of nose Neck supple no JVD. CVS regular rate rhythm, Respiratory lungs clear to auscultation, no respiratory distress Gastrointestinal abdomen soft, nontender, bowel sounds audible. Extremities no edema. Neuro nonfocal Skin no rash psych appropriate affect Objective Data Active Medications Acetaminophen (Acetaminophen 325 Mg Tablet) 650 mg PO Q6H PRN PRN Reason: Pain, Mild (Pain Scale 1-3) Last Admin: 08/08/21 06:29 Dose: 650 mg Documented by: WHIT Enoxaparin Sodium (Enoxaparin Sodium 40 Mg/0.4 Ml Syringe) 40 mg SUBCUT Q24H [facility] Last Admin: 08/07/21 23:20 Dose: 40 mg Documented by: TARYN Sodium Chloride (Ns) 1,000 mls @ 100 mls/hr IVCONT .Q10H [facility] Last Admin: 08/08/21 08:55 Dose: 100 mls/hr Documented by: FROY Melatonin (Melatonin 3 Mg Tablet) 6 mg PO BEDTIME PRN PRN Reason: Insomnia Pharmacy Consult (Consult Rx Perform Med Rec) 1 each MISCELLANE ONCE PRN PRN Reason: Consult order Senna (Sennosides 8.6 Mg Tablet) 17.2 mg PO BEDTIME PRN PRN Reason: Constipation Sodium Chloride (0.9 % Sodium Chloride Flush 3 Ml Syringe) 3 ml IVFLUSH QSHIFT [facility] Last Admin: 08/08/21 07:10 Dose: Not Given Documented by: FROY Non-Admin Reason: Med Not Available Sodium Chloride (0.9 % Sodium Chloride Flush 3 Ml Syringe) 3 ml IVFLUSH QSHIFT [facility] Last Admin: 08/08/21 07:10 Dose: Not Given Documented by: FROY Non-Admin Reason: Med Not Available Vitamin D (Cholecalciferol (Vitamin D3) 25 Mcg Tablet) 50 mcg PO DAILY [facility] Last Admin: 08/08/21 09:03 Dose: 50 mcg Documented by: FROY Labs CBC & Chem 7: 08/08/21 04:22 08/07/21 19:30 Labs: Laboratory Results - last 24 hr 08/07/21 08/07/21 08/07/21 19:28 19:30 19:30 MCV 89.8 MCH 30.6 MCHC 34.1 RDW 11.8 Plt Count 289 MPV 9.4 Immature Gran % (Auto) 0.4 Neut % (Auto) 80.2 H Lymph % (Auto) 13.3 L [place] % (Auto) 5.2 Eos % (Auto) 0.3 Baso % (Auto) 0.6 Lymph # (Auto) 1.4 [place] # (Auto) 0.5 Eos # (Auto) 0.0 Baso # (Auto) 0.1 Abs Immat Gran (auto) 0.04 H Absolute Neuts (auto) 8.2 Absolute Nucleated RBC 0.000 Nucleated RBC % (auto) 0.0 D-Dimer High Sensitivty Anion Gap 8 L Estim Creat Clear Calc 68.7 Estimated GFR > 60 Random Glucose 90 Estimat Average Glucose Hemoglobin A1c % Calcium 8.8 Magnesium 1.9 Total Bilirubin 0.5 Direct Bilirubin 0.2 AST 15 ALT 12 Alkaline Phosphatase 52 B-Natriuretic Peptide Total Protein 6.4 L Albumin 3.7 Triglycerides Cholesterol LDL Cholesterol, Calc HDL Cholesterol Lipase 16 TSH 1.92 Urine Color Urine Appearance Urine pH Ur Specific [place] Urine Protein Urine Glucose (UA) Urine Ketones Urine Blood Urine Nitrite Ur Leukocyte Esterase Urine RBC Urine WBC Ur Squamous Epith Cells Urine Bacteria COVID-19 (RADHA) Negative COVID-19 Clin Com See Note 08/07/21 08/07/21 08/07/21 19:30 19:30 19:45 MCV MCH MCHC RDW Plt Count MPV Immature Gran % (Auto) Neut % (Auto) Lymph % (Auto) [place] % (Auto) Eos % (Auto) Baso % (Auto) Lymph # (Auto) [place] # (Auto) Eos # (Auto) Baso # (Auto) Abs Immat Gran (auto) Absolute Neuts (auto) Absolute Nucleated RBC Nucleated RBC % (auto) D-Dimer High Sensitivty Anion Gap Estim Creat Clear Calc Estimated GFR Random Glucose Estimat Average Glucose 111 Hemoglobin A1c % 5.5 Calcium Magnesium Total Bilirubin Direct Bilirubin AST ALT Alkaline Phosphatase B-Natriuretic Peptide 28 Total Protein Albumin Triglycerides Cholesterol LDL Cholesterol, Calc HDL Cholesterol Lipase TSH Urine Color YELLOW Urine Appearance CLEAR Urine pH 5.5 Ur Specific [place] 1.015 Urine Protein NEG Urine Glucose (UA) NEG Urine Ketones NEG Urine Blood NEG Urine Nitrite NEG Ur Leukocyte Esterase 1+ H Urine RBC 0 Urine WBC 1-4 Ur Squamous Epith Cells 1+ Urine Bacteria 1+ COVID-19 (RADHA) COVID-19 [employer] 08/07/21 08/08/21 08/08/21 23:01 04:22 04:22 MCV 90.6 MCH 30.9 MCHC 34.1 RDW 12.0 Plt Count 282 MPV 9.4 Immature Gran % (Auto) 0.1 Neut % (Auto) 59.3 Lymph % (Auto) 32.5 [place] % (Auto) 6.4 Eos % (Auto) 0.9 Baso % (Auto) 0.8 Lymph # (Auto) 2.6 [place] # (Auto) 0.5 Eos # (Auto) 0.1 Baso # (Auto) 0.1 Abs Immat Gran (auto) 0.01 Absolute Neuts (auto) 4.8 Absolute Nucleated RBC 0.000 Nucleated RBC % (auto) 0.0 D-Dimer High Sensitivty < 150 Anion Gap Estim Creat Clear Calc Estimated GFR Random Glucose Estimat Average Glucose Hemoglobin A1c % Calcium Magnesium Total Bilirubin Direct Bilirubin AST ALT Alkaline Phosphatase B-Natriuretic Peptide Total Protein Albumin Triglycerides 89 Cholesterol 196 LDL Cholesterol, Calc 123 HDL Cholesterol 56 D Lipase TSH Urine Color Urine Appearance Urine pH Ur Specific [place] Urine Protein Urine Glucose (UA) Urine Ketones Urine Blood Urine Nitrite Ur Leukocyte Esterase Urine RBC Urine WBC Ur Squamous Epith Cells Urine Bacteria COVID-19 (RADHA) COVID-19 [employer] Com Assessment and Plan (1) Essential hypertension: Status: Acute (2) Syncope: Status: Acute Plan Unremarkable high sensitivity troponins. Cardiac BNP 28.? No clear orthostatic blood pressure changes.? Could be a vagal type episode related to occult viral infection.? Telemetry, EKG are also unremarkable.? May get an echocardiogram for further evaluation.? Possibly, outpatient Holter monitor. 65-year-old female with a past medical history of hypertension presented to the hospital with a chief complaint of syncope. Syncope Question etiology, likely due to hypotension,although noted to have normal orthostatic hypotension no evidence of infection, CT head and CT cervical spine showed no acute findings, normal neuro exam. normal blood sugars, normal renal function, LDL 123 with total cholesterol 196, TSH 1.92, normal CBC and D-dimer tele monitor showed no arrhythmia have sinus rhythm heart rate 50-60 seen by Cardiology since EKG and troponin are unremarkable they recommend to obtain Echocardiogram and rec. outpatient Holter monitor will follow clinical course continue tele monitor, history of hypertension:? Blood pressure on the normal side.? Hold home lisinopril for now. DVT prophylaxis:? Lovenox Code status: Full code disposition admitted last night,will monitor in telemetry for next 24 hours and obtain echocardiogram if no arrhythmias and echo remain normal patient will be discharged home in next 24 hours. Quality Stroke Does the patient have a stroke diagnosis?: No VTE Prior VTE?: No VTE Risk Level:: Medical - moderate - high VTE Device Contraindication: Treatment Not Indicated VTE Drug Contraindication: N/A - Med Ordered
[2021-08-08 14:25] VITALS: BP 111/60; PULSE 79; RESP 20; TEMP 37.1; O2SAT 97
[2021-08-08 20:00] VITALS: BP 118/65; PULSE 61; RESP 15; TEMP 37.1; O2SAT 98
[2021-08-08] MEDS: Enoxaparin Sodium 40 MG/0.4 ML SYRINGE SUBCUT (21:50)
--- NOTE | 2021-08-08 22:54 | PC.NURSE ---
This nurse took over patient's care at 1900. Patient is alert and oriented x3, offers no complaints at this time. Small abrasion to bridge of nose noted, patient reports due to fall at home. Ambulated to bathroom with standby assist, steady gait.
--- NOTE | 2021-08-08 23:25 | PC.NURSE ---
report given to nurse on s3
[2021-08-09 00:31] VITALS: BMI 24.4
[2021-08-09 00:32] VITALS: BP 105/59; PULSE 56; RESP 18; TEMP 36.5; O2SAT 98
[2021-08-09] MEDS: 0.9 % Sodium Chloride 1,000 ML 100 ML IVCONT (00:38)
[2021-08-09 06:58] VITALS: BP 117/56; PULSE 52; RESP 18; TEMP 36.1; O2SAT 96
--- NOTE | 2021-08-09 08:16 | MHC.CM.PN ---
PT MEDICALLY CLEARED FOR D/C HOME SELF-CARE, FAMILY FOR TRANSPORT
[2021-08-09] MEDS: Cholecalciferol (Vitamin D3) 25 MCG TABLET 50 MCG PO (09:11)
--- NOTE | 2021-08-09 09:45 | PM.PNCARD ---
Subjective Subjective Date of Service: 08/09/21 Interval history: Patient states that she is feeling better. Review of Systems Review of Systems Yes all other systems are reviewed and are negative Cardiovascular: Reports as per HPI, Reports no additional cardiovascular complaints, Denies acrocyanosis, Denies cool extremities, Denies painful fingertips, Denies chest pain, Denies chest pain at rest, Denies diaphoresis, Denies syncope, Denies irregular heart rhythm, Denies claudication, Denies leg edema, Denies lightheadedness, Denies palpitations and Denies dyspnea Respiratory: Denies dyspnea Denies syncope Endocrine: Denies palpitations Physical Exam Vital Signs: Last Vital Signs Temp 97 F 08/09/21 06:58 Pulse 52 08/09/21 06:58 Resp 18 08/09/21 06:58 BP 117/56 L 08/09/21 06:58 Pulse Ox 96 08/09/21 06:58 BMI result Body Mass Index 24.4 Const General: no acute distress HENMT Other: Unremarkable Neck Neck: Yes normal visual inspection Chest Chest palpation & inspection: normal inspection of the chest Resp Auscultation: no crackles and no wheezes Cardio Palpation: normal PMI Heart sounds: S1 normal heart sound present, S2 normal heart sound present, no gallops, no murmurs and no rubs GI Palpation (GI): Soft to palpation Back/Spine/Pelvis Other: unremarkable Skin Lesions: other Neuro Cranial nerves: Yes Other cranial nerve findings present Extrem General: Yes other Psych Mental Status: other Objective Labs and Meds Result diagrams: 08/08/21 04:22 08/07/21 19:30 Progress Note: A&P Assessment and plan (1) Syncope: Status: Acute (2) Essential hypertension: Status: Acute Plan Unremarkable high sensitivity troponins. Cardiac BNP 28. No clear orthostatic blood pressure changes. Could be a vagal type episode related to occult viral infection. Telemetry, EKG are also unremarkable. Echocardiogram is unremarkable. With regard to blood pressure, she has not received blood pressure medications and her blood pressures are still already on the lower side. Hence not clear if this is what played a role. Can hold off on BP meds at this time and patient to monitor her home blood pressures. Discussed about this with her. Will arrange outpatient follow-up. Fall Risk Details Current Medications: Current Medications Acetaminophen (Acetaminophen 325 Mg Tablet) 650 mg PO Q6H PRN PRN Reason: Pain, Mild (Pain Scale 1-3) Last Admin: 08/08/21 21:50 Dose: 650 mg Documented by: Enoxaparin Sodium (Enoxaparin Sodium 40 Mg/0.4 Ml Syringe) 40 mg SUBCUT Q24H COUNT INCLUDES THE [facility] Last Admin: 08/08/21 21:50 Dose: 40 mg Documented by: Sodium Chloride (Ns) 1,000 mls @ 100 mls/hr IVCONT .Q10H COUNT INCLUDES THE [facility] Last Admin: 08/09/21 00:38 Dose: 100 mls/hr Documented by: Influenza Virus Vaccine (Flu Vacc [id number](6mos Up)/Pf 0.5 Ml Syringe) 0.5 ml IM .ONCE ONE Stop: 08/09/21 10:01 Last Admin: 08/09/21 09:15 Dose: 0.5 ml Documented by: Melatonin (Melatonin 3 Mg Tablet) 6 mg PO BEDTIME PRN PRN Reason: Insomnia Pharmacy Consult (Consult Rx Perform Med Rec) 1 each MISCELLANE ONCE PRN PRN Reason: Consult order Senna (Sennosides 8.6 Mg Tablet) 17.2 mg PO BEDTIME PRN PRN Reason: Constipation Sodium Chloride (0.9 % Sodium Chloride Flush 3 Ml Syringe) 3 ml IVFLUSH [facility] Last Admin: 08/09/21 09:15 Dose: Not Given Documented by: Sodium Chloride (0.9 % Sodium Chloride Flush 3 Ml Syringe) 3 ml IVFLUSH [facility] Last Admin: 08/09/21 09:15 Dose: Not Given Documented by: Vitamin D (Cholecalciferol (Vitamin D3) 25 Mcg Tablet) 50 mcg PO DAILY COUNT INCLUDES THE [facility] Last Admin: 08/09/21 09:11 Dose: 50 mcg Documented by: Time Spent With Patient Time: Total time spent is greater than 50% in coordination of care (as documented) at patient's floor/unit and/or counseling patient: Time with patient: less than 15 minutes Progress Note: Quality Stroke Does the patient have a stroke diagnosis?: No Procedures Date of Service Date of Service: 08/09/21
--- NOTE | 2021-08-09 10:16 | P.DS_ITS ---
DS: Providers Provider Date of Service: 08/09/21 Date of admission: 08/08/21 00:31 Primary care physician: Shabnam Brian NP Consults: 08/07/21 22:45 Consult to Cardiology Routine Consulting Provider: Robbi Herring Reason for consultation: Syncope DS: Diagnosis Discharge Diagnosis (1) Syncope: Status: Acute (2) Essential hypertension: Status: Acute DS: Summary Hospital Course Hospital Course: Chief Complaint: ? Syncope 65-year-old female with a past medical history of hypertension presented to the hospital with a chief complaint of syncope.? Patient reports that she has not been feeling well? all day today.? Has been having intermittent episodes of lightheadedness is dizziness.? She took a nap and later when she was sitting in a chair she felt lightheaded and fell onto the ground, loss conscious briefly, no seizure-like activity, no confusion.? Reports he has intermittent chest discomfort.? Denies any numbness tingling or focal weakness.? Denies any nausea vomiting or diarrhea.? Denies any neck pain, back pain, hip pain.? Review of all other systems is negative except mentioned above ER course: patient's exam was nonfocal, CT head and CT cervical spine showed no acute findings.? EKG nonischemic.? Troponin negative.? Admitted to the hospital for? Further management 65-year-old female with a past medical history of hypertension presented to the hospital with a chief complaint of syncope question etiology, likely due to hypotension,although noted to have normal orthostatic hypotension no evidence of infection, CT head and CT cervical spine showed no acute findings, normal neuro exam,normal blood sugars, normal renal function, LDL 123 with total cholesterol 196, TSH 1.92, normal CBC and D-dimer,tele monitor showed no arrhythmia?,had sinus rhythm heart rate 50-60, echocardiogram showed normal EF and diastolic function with no wall motion abnormality patient treated with IV fluids blood pressure improved patient currently is feeling better blood pressure has improved, but remains soft therefore will discharge patient home on no blood pressure medications recommend to have close outpatient follow-up with PCP for blood pressure follow-up, patient evaluated by Cardiology and they recommend outpatient Holter monitor, cardiology will call to make an appointment discharge diagnosis syncope likely due to hypotension recommend to stop lisinopril and to have outpatient follow-up with Cardiology. Time Spent with Patient Time attestation: Total time spent providing and/or coordinating discharge services: Discharge coordination time: Greater than 30 minutes Quality: Stroke Does the patient have a stroke diagnosis?: No Physical Exam Verdana 4l Vital Signs: Verdana 4d Verdana 4d Vital Signs: Verdana 4d Verdana 4Bd Last Vital Signs Verdana 4d Escrow Representative New 4d Escrow Representative New 4d Temp 97 F 08/09/21 06:58 Escrow Representative New 4d Pulse 52 08/09/21 06:58 Escrow Representative New 4d Resp 18 08/09/21 06:58 BP 117/56 L 08/09/21 06:58 Pulse Ox 96 08/09/21 06:58 BMI result Body Mass Index 24.4 Const: Other: Gen: Appears be in no acute distress HEENT:? NCAT,? Moist mucosa. Pulmonary:? Vesicular breath sounds, fair air entry CVS:? Normal S1-S2 Abdomen: BS+, Soft, Nontender Extremities:? Warm well perfused Neuro:? Alert and awake. grossly nonfocal DS: Data Data Completed and Pending Labs on day of discharge: Preliminary micro results at discharge 08/07/21 19:55 Urine Culture - Preliminary Urine clean catch - Urine rendon top No growth to date. Discharge Plan Discharge Patient Disposition: Home, Self-Care Discharge Diagnosis: syncope Referrals: Shabnam Brian NP [Primary Care Provider] - 1 Week Discharge Medications: Continued carisoprodol 350 mg tablet 1 tab PO BEDTIME PRN (Reason: Pain) 0RF cholecalciferol (vitamin D3) 50 mcg (2,000 unit) Tablet 50 mcg PO DAILY 0RF Discontinued lisinopril 5 mg tablet 1 tab PO DAILY 0RF Discharge Orders: Discharge Order (Routine); Ordered 08/09/21 Ordered By: Issac Sutherland Diet: advance to usual diet Activity on Discharge: As tolerated Stand Alone Forms: Patient Portal Discharge page Care Plan Goals: syncope likely due to hypotension, no other cause of syncope found outpatient follow-up with Cardiology for Holter monitor Health Concerns: hypertension hold lisinopril since noted to have low blood pressures Plan of Treatment: outpatient follow-up with primary care physician in next 1-2 weeks, call Cardiology Dr. Herring to make follow-up appointment in next 1-2 weeks Assessment: per discharge summary
[2021-08-09 11:32] VITALS: BP 145/71; RESP 18; TEMP 36.2; O2SAT 98
== END 2021-08-09 15:00 | disposition home or self-care (01) ==
LOC: HO.ED 08-08 00:42 → HO.EDOVER 08-08 00:43 → HO.S3 08-08 22:46
PROVIDERS: Physician Assistant; Admitting Provider Hospitalist; Emergency Provider Internal Medicine; PCP Nurse Practitioner Adult Health; Visit Provider Hospitalist
DX: R55 Syncope and collapse (principal); R51.9 Headache, unspecified; S06.9X9A Unspecified intracranial injury with loss of consciousness of unspecified duration, initial encounter; S01.21XA Laceration without foreign body of nose, initial encounter; W18.39XA Other fall on same level, initial encounter; Y93.F9 Activity, other caregiving; Y92.017 Garden or yard in single-family (private) house as the place of occurrence of the external cause; Y99.8 Other external cause status; I10 Essential (primary) hypertension; H53.001 Unspecified amblyopia, right eye; Z20.822 Contact with and (suspected) exposure to COVID-19; Z88.6 Allergy status to analgesic agent; Z88.8 Allergy status to other drugs, medicaments and biological substances; Z79.899 Other long term (current) drug therapy; Z23 Encounter for immunization
CPT/HCPCS: 36415; 70450; 71045; 72125; 80048; 80061; 80076; 81001; 83036; 83690; 83735; 83880; 84443; 84484; 85025; 85379; 87086; 87635; 90471; 90686; 93005; 93306; 93356; 96361; 96372; 96374; 99205; 99215; 99218; 99285; J1650; J2405

== ENCOUNTER → 2021-08-23 11:36 | Outpatient (REF) | payer BC, SELFPAY ==
--- NOTE | 2021-08-23 11:39 | HM_ITS ---
Conclusion: 1. Patient was monitored for total period of 27 days and 20 hours 2. Baseline rhythm was normal sinus rhythm with average heart of 72 beats per minute 3. No significant pauses or bradycardia noted 4. One 4 beat episode of nonsustained VT at 151 beats per minute noted 5. 2 episodes of SVT, longest lasting 13 beats at 130 beats per minute 6. Six total of 2004 at 60 PACs accounting for 0.81% total burden account for occasional PACs 7. No patient reported events MTDD
== END ==
LOC: HO.CARD 11:36
PROVIDERS: PCP Nurse Practitioner Adult Health; Visit Provider Internal Medicine
DX: R55 Syncope and collapse (principal)
CPT/HCPCS: 93242

== ENCOUNTER → 2021-09-26 11:00 | Outpatient (BNVA) | payer BC, SELFPAY | PROVIDERS: PCP Nurse Practitioner Adult Health; Visit Provider Internal Medicine | DX: R06.02 Shortness of breath (principal); R42 Dizziness and giddiness; R55 Syncope and collapse; I65.23 Occlusion and stenosis of bilateral carotid arteries | CPT/HCPCS: 99212 ==

== ENCOUNTER → 2021-10-17 07:54 | Outpatient (REF) | payer BC, SELFPAY ==
--- NOTE | ~2021-10-17 | NM_ITS ---
Exercise Myocardial perfusion study Indication: Shortness of breath evaluate for myocardial ischemia Technique: The patient was brought in for an exercise perfusion study on 10/17/2021. Patient performed exercise as per Matt protocol and was injected 25 mCi of sestamibi was given intravenously one target HR was achieved. Images were obtained using the SPECT gamma camera interlaced with the gating device. Images were obtained in supine position. Resting perfusion study was performed on 10/18/2021. Patient was administered 25 mCi of sestamibi intravenously at rest. Images were then obtained in supine position. Images obtained with and without CT attenuation. Total DLP 74 mGy-cm. Images were processed with the software and compared side to side in short axis, horizontal long axis and vertical long axis views. Findings: The stress perfusion study showed non attenuated images show normal uptake of radiotracer in all segments of LV myocardium. Attenuation corrected images show mildly reduced uptake in the apex of the LV myocardium. The gated study shows normal LV systolic function with calculated LVEF of 69%. LV cavity is normal in size. The gated study shows normal systolic wall thickening and contraction of all segments. There is no transient ischemic dilation. Resting study shows non attenuated images show normal uptake of radiotracer in all segments of LV myocardium. Gating at rest reveals normal systolic wall motion with ejection fraction at 63%. The findings are consistent with normal myocardial perfusion. NM/NM cardiolite stress test Impression: 1. Normal myocardial perfusion 2. Gated LVEF is 69% 3. Transient ischemic dilatation not present Stress EKG is nondiagnostic for ischemia
--- NOTE | ~2021-10-17 | US_ITS ---
EXAMINATION: US EXTRACRANIAL CAROTID DUPLEX, BILATERAL CLINICAL INFORMATION: Dizziness, hypertension COMPARISON: None TECHNIQUE: Real-time ultrasound and Doppler techniques (integrating B-mode 2-D vascular images, Doppler spectral analysis and color-flow Doppler imaging) were utilized to interrogate the extracranial carotid arteries, the vertebral arteries and proximal subclavian arteries bilaterally. The degree of stenosis is determined by criteria similar to NASCET. FINDINGS: Right Side: 1. There is mild atherosclerotic plaque seen in the bifurcation/proximal ICA region. 2. The common carotid artery PSV proximally is 102 cm/s and distally 95 cm/s. 3. The proximal internal carotid artery velocities are 77 cm/s systolic and 27 cm/s diastolic. 4. The proximal external carotid artery PSV is 87 cm/s. 5. The vertebral artery shows antegrade flow. 6. The subclavian artery waveforms are normal. Left Side: 1. There is mild atherosclerotic plaque seen in the bifurcation/proximal ICA region. 2. The common carotid artery PSV proximally is 121 cm/s and distally 84 cm/s. 3. The proximal internal carotid artery velocities are 72 cm/s systolic and 23 cm/s diastolic. 4. The proximal external carotid artery PSV is 98 cm/s. 5. The vertebral artery shows antegrade flow. 6. The subclavian artery waveforms are normal. US/US carotid duplex BI IMPRESSION: 1. RIGHT: Minimal, non-hemodynamically significant stenosis of the proximal right internal carotid artery corresponding to a 0-49% stenosis by velocity criteria. 2. LEFT: Minimal, non-hemodynamically significant stenosis of the proximal left internal carotid artery corresponding to a 0-49% stenosis by velocity criteria.
--- NOTE | 2021-10-17 07:58 | CA_ITS ---
Acquisition Time: 2021-10-17 08:09:07 Total Exercise Time: 00:07:30 Test Indications: SOB Medications: Protocol: AVIS Max HR: 137 BPM 87% of Pred: 156 BPM Max BP: 184/064 mmHG Max Work Load: 9.3 METS Exercise stress test with exercise 7 min 30 sec of Avis protocol, achieving 87% MPHR, without anginal symptoms, with isolated PVCs in stage 3, with normotensive response to exercise, with nondiagnostic EKG for ischemia due to baseline ST abnormality. Nuclear images pending. Test reviewed with Dr Verduzco. Referred By: Robbi Herring Overread By: SOLOMON COOL
== END ==
LOC: HO.CARD 07:54
PROVIDERS: Visit Provider Internal Medicine
DX: I65.23 Occlusion and stenosis of bilateral carotid arteries (principal); R06.02 Shortness of breath
CPT/HCPCS: 78452; 93017; 93880; A9500; J0280; J2785

== ENCOUNTER → 2021-11-05 14:27 | Outpatient (BNVA) | payer BC, SELFPAY | PROVIDERS: PCP Nurse Practitioner Adult Health; Visit Provider Nurse Practitioner Family | DX: Z13.89 Encounter for screening for other disorder (principal) ==

== ENCOUNTER → 2021-11-07 10:54 | Outpatient (BNVA) | payer BC, SELFPAY | PROVIDERS: PCP Nurse Practitioner Adult Health; Referring Provider Nurse Practitioner Adult Health; Visit Provider Internal Medicine | DX: R06.02 Shortness of breath (principal) ==

== ENCOUNTER 2021-11-28 13:33 | Outpatient (REF) | payer MEDICARE, BC, SELFPAY ==
--- NOTE | ~2021-11-28 | MR_ITS ---
EXAMINATION: MR BRAIN WITHOUT CONTRAST CLINICAL INFORMATION: 65-year-old with history of syncopal episode, with headache, lightheadedness and dizziness. History of concussion in the remote past. Syncope and collapse. COMPARISON: None. TECHNIQUE: Multiplanar multisequence MR imaging of the brain was done without IV contrast. FINDINGS: BRAIN VOLUME: Within normal limits within the limitations of a qualitative assessment. STRUCTURAL: No malformations. BRAIN AND MENINGES: DWI sequence demonstrates no restricted diffusion to suggest acute or subacute cerebral ischemia. Scattered small rounded zones of FLAIR/T2 signal hyperintensity are seen within the subcortical white matter of the left frontoparietal region, left posterior frontal white matter and right external capsule, which are nonspecific findings. Gradient refocused imaging demonstrates no evidence for hemorrhage, hemosiderin staining or abnormal mineral deposition. No extra-axial fluid collections, significant space-occupying process or mass effect are identified. VENTRICLES AND SUBARACHNOID SPACES: The ventricular system and subarachnoid spaces are within normal limits without hydrocephalus. ORBITAL STRUCTURES: The visualized orbital structures are grossly unremarkable within the limitations of the study. VASCULAR: Signal voids are noted in the visualized major intracranial vessels. OSSEOUS STRUCTURES, SINUSES/MASTOIDS, EXTRACRANIAL SOFT TISSUES: Minor mucosal thickening in the ethmoid complex is noted with nasal septal deviation to the left. Osseous marrow signal intensity appears unremarkable. Upper cervical DDD and spondylosis is noted at C4-C5 and C5-C6. MR/MR head/brain wo con IMPRESSION: 1. A few scattered nonspecific white matter T2 hyperintensities noted in the cerebral hemispheres as described above. 2. No acute intracranial process. No evidence for infarcts, extra-axial fluid collection, space-occupying process, mass effect, hemorrhage or hydrocephalus. 3. Upper cervical DDD and spondylosis.
== END 2021-11-28 13:34 | disposition home or self-care (01) ==
LOC: HO.MRI 13:33
PROVIDERS: Visit Provider Nurse Practitioner Family
DX: R55 Syncope and collapse (principal); R42 Dizziness and giddiness
CPT/HCPCS: 70551

== ENCOUNTER 2022-01-01 12:50 | Outpatient (REF) | payer BC, MEDICARE, SELFPAY ==
--- NOTE | 2022-01-01 12:58 | EEG_ITS ---
This is a 16-channel EEG with an EKG lead. The patient is reported awake during the tracing. Background EEG rhythm mostly is 16 to 20 hertz, 5 to 30 microvolt posteriorly, lower amplitude fast anteriorly. Intermittently, asymmetric left temporal sharply controlled theta discharges were noted. No definite spike was noted. Photic stimulation did not produce any significant driving. Hyperventilation was not performed. Cardiac lead did not reveal any significant abnormality. IMPRESSION: Mildly abnormal EEG suggestive of left temporal abnormality, which could suggest tendency for partial seizures. If partial complex seizures are suspected, an ambulatory EEG is recommended for better definition. MD YANNICK Donovan/LEANNE / [id number]
== END 2022-01-01 12:51 | disposition home or self-care (01) ==
LOC: HO.NEURO 12:50
PROVIDERS: Visit Provider Nurse Practitioner Family
DX: R55 Syncope and collapse (principal); R42 Dizziness and giddiness
CPT/HCPCS: 95816

== ENCOUNTER 2022-02-04 12:59 | Outpatient (REF) | payer MEDICARE, SELFPAY ==
--- NOTE | 2022-02-04 13:03 | EEG_ITS ---
PROCEDURE: 24-hour ambulatory EEG The waking background activity consists of a well-defined posterior 10 to 11 hertz alpha frequency, intermixed with low voltage fast frequencies anteriorly. Drowsiness is characterized by diffuse theta slowing. During sleep, symmetrical frontocentral sleep spindles and vertex sharp transients developed. Arousals are unremarkable. No focal, lateralizing, or paroxysmal discharges seen. IMPRESSION: This 24-hour ambulatory EEG is within normal limits. The patient remains asymptomatic. MD JACKIE King/LEANNE / [id number]
== END 2022-02-04 13:00 | disposition home or self-care (01) ==
LOC: HO.NEURO 12:59
PROVIDERS: Visit Provider Nurse Practitioner Family
DX: R55 Syncope and collapse (principal)
CPT/HCPCS: 95708; 95957

== ENCOUNTER → 2022-02-11 11:24 | Outpatient (BNVA) | payer MEDICARE, SELFPAY | PROVIDERS: PCP Nurse Practitioner Adult Health; Visit Provider Nurse Practitioner Family | DX: R42 Dizziness and giddiness (principal); R55 Syncope and collapse | CPT/HCPCS: 99212 ==

== ENCOUNTER 2022-03-04 08:56 | Outpatient (REF) | payer MEDICARE, SELFPAY ==
[2022-03-04 12:09] LABS: Anion Gap 12 (12-20); Blood Urea Nitrogen 10 mg/dL (9-16); Calcium 9.4 mg/dL (8.4-10.2); Carbon Dioxide 26 mmol/L (22-29); Chloride 107 mmol/L (96-108); Cholesterol 231 mg/dL; Estimated Glomerular Filt Rate > 60; Glucose Random 94 mg/dL (60-115); HDL Cholesterol 65 mg/dL; LDL Cholesterol Calculated 142 mg/dl; Potassium 4.4 mmol/L (3.3-5.1); Sodium 141 mmol/L (135-145); Triglycerides 123 mg/dL
== END 2022-03-04 08:57 | disposition home or self-care (01) ==
LOC: HO.HMGCLDS 08:56
PROVIDERS: PCP Nurse Practitioner Adult Health; Visit Provider Nurse Practitioner Adult Health
DX: Z00.00 Encounter for general adult medical examination without abnormal findings (principal)
CPT/HCPCS: 36415; 80048; 80061

== ENCOUNTER 2023-03-17 08:15 | Outpatient (REF) | payer MEDICARE, SELFPAY | END 2023-03-17 08:16 | disposition home or self-care (01) | LOC: HO.HMGCLNP 08:15 | PROVIDERS: PCP Nurse Practitioner Adult Health; Visit Provider Physician Assistant | DX: Z13.89 Encounter for screening for other disorder (principal) ==

== ENCOUNTER 2023-09-08 11:18 | Outpatient (REF) | payer MEDICARE, SELFPAY ==
--- NOTE | ~2023-09-08 | MM_ITS ---
EXAMINATION: BONE DENSITOMETRY CLINICAL INDICATION: Age-related osteoporosis. COMPARISON: This is the patient's baseline examination. TECHNIQUE: Using a Hydrostor DXA System (software version: 13.1) manufactured by [employer], dual-energy x-ray absorptiometry was performed of the lumbar spine and left hip. The images are of good technical quality. Summary results are attached. FINDINGS: LEFT FEMUR, NECK: BMD 0.692 g/cm2, Z-score -0.8, T-score -2.5, osteoporosis. LEFT FEMUR, TOTAL: BMD 0.764 g/cm2, Z-score -0.5, T-score -1.9, osteopenia. AP SPINE L1-L4: BMD 0.837 g/cm2, Z-score -1.0, T-score -2.9, osteoporosis. IDENTIFIED RISK FACTORS: Early menopause, history of fracture (adult), hysterectomy, osteoporosis, secondary osteoporosis. HISTORY OF FRACTURE: Other. MEDICATIONS: Vitamin D. MM/XR DEXA axial skeleton IMPRESSION: 1. DIAGNOSIS: Osteoporosis based on the lowest T-score value of -2.9 in the lumbar spine applying World Health Organization criteria. 2. 10-YEAR FRACTURE RISK PREDICTION, FRAX: According to the guidelines, FRAX calculation should only be performed on patients in the osteopenia bone density category. Therefore, FRAX was not performed on this patient. 3. Treatment Recommendations: NOF guidelines recommend consideration for treatment in postmenopausal women and men age 50 and older presenting with the following: -A hip or vertebral (clinical or morphometric) fracture. -T-score less than or equal to -2.5 at the femoral neck or spine after appropriate evaluation to exclude secondary causes. -Low bone mass at the hip or spine and a 10-year fracture probability by FRAX of greater than or equal to 3% for hip fracture or greater than or equal to 20% for major osteoporotic fracture based on the [place] adapted WHO algorithm. 4. Other Recommendations: All treatment decisions require clinical judgment and consideration of individual patient factors, including patient preferences, comorbidities, previous drug use, risk factors not captured in the FRAX model (e.g. frailty, falls, vitamin D deficiency, increased bone turnover, interval significant decline in bone density) and possible under or overestimation of fracture risk by FRAX. Additional medical evaluation for secondary cause of low bone mineral density may be appropriate. FUTURE SCAN RECOMMENDATION: People with diagnosed cases of osteoporosis or at high risk for fracture should have regular bone mineral density tests. For patients eligible for Medicare, routine testing is allowed once every 2 years. The testing frequency can be increased to one year for patients who have rapidly progressing disease, those who are receiving or discontinuing medical therapy to restore bone mass, or have additional risk factors.
== END 2023-09-08 11:19 | disposition home or self-care (01) ==
LOC: HO.MAMMO 11:18
PROVIDERS: PCP Nurse Practitioner Adult Health; Visit Provider Family Medicine
DX: Z13.820 Encounter for screening for osteoporosis (principal); M81.0 Age-related osteoporosis without current pathological fracture; Z78.0 Asymptomatic menopausal state
CPT/HCPCS: 77080

== ENCOUNTER 2025-02-02 10:47 | Outpatient (AMB) | payer MEDICARE, SELFPAY ==
--- NOTE | 2025-02-02 10:51 | MHC.OFFVIS ---
Vital Signs 02/02/25 11:04 Height 5 ft 2 in Weight 130 lb BMI 23.8 BP 153/74 H Pulse 65 Intake Visit Reasons: Results/ Conf Allergies morphine Allergy (Unknown, Verified 02/11/22 11:30) Itchiness Effexor Allergy (Unknown, Uncoded 11/07/21 10:58) Itchiness Flexeril Allergy (Unknown, Uncoded 11/07/21 10:58) Itchiness HPI Comments Details: 69 years old man with him mild microvascular disease of brain, one episode of passing out in 2021 with negative cardiac workup and no other obvious explanation of passing out, a routine EEG revealing left hemispheric sharply contoured theta discharges while a 24-hour EEG was unremarkable. She had episodes of dizziness or lightheadedness, with a strange feeling, sometimes with confusion, not lasting long. It made her tired. She had not passed out again. [facility] [place] Medical History (Updated 02/02/25 @ 10:54 by Thom Farnsworth MD) Seizure disorder Cerebral microvascular disease Dysconjugate gaze Essential hypertension HTN (hypertension) Surgical History History of hernia repair H/O section Family History Father No problems noted. Mother CHF (congestive heart failure) Social History Alcohol intake: never Patient Tobacco Use Status: Former Tobacco user Years Smoked: 10 +/- service: No Current occupational status: unemployed Review of Systems Const Details: Dizziness and tired. Physical Exam Neuro Other: Mental Status: Alert and oriented to person, place, and time. Normal attention. Normal spontaneous speech, fluency, and comprehension. No obvious issues with mood and memory. Affect is appropriate. Cranial Nerves: CN II: Visual garcia full to confrontation, visual acuity intact. CN III, IV, : Pupils equal, round, reactive to light and accommodation. Extraocular movements are normal. CN V: Facial sensation is normal. CN VII: Facial movements symmetrical. CN VIII: Hearing intact to bedside conversation is normal. CN IX, X: Palate elevates symmetrically. CN XI: Shoulder shrug and head turn symmetrical. CN XII: Tongue midline without atrophy or fasciculations. Extrapyramidal: Full facial expressions and blinking. No rigidity. Movements are appropriate with no tremor or abnormality. Speech: Normal; no dysarthria or tremor. Assessment & Plan Assessment & Plan (1) Seizure disorder: Comment: EEG at off in December 2024: bitemp sharp waves [place] [facility] [place]: Left temp sharp theta [address] [facility] [place] 2021: WNL MRI brain WO [place] [facility] [place]: a few small ischemic looking scattered WM lesions CT brain WO [place] [facility] [place]: Ok EKG [place] [facility] [place]: NSR Echocardiogram [place] [facility] in 2021: OK 30 days [place] [facility] [place] 2021: No a fibb, PACs Stress test at [facility] [place]: OK. Code(s): G40.909 - Epilepsy, unspecified, not intractable, without status epilepticus Category: Medical (2) Cerebral microvascular disease: Code(s): I67.89 - Other cerebrovascular disease Category: Medical Plan Impression: a: Complex partial seizure disorder b: Cerebral microvascular changes with HTN Rec: Lamotrigine 25mg one a day for 2 weeks, then twice a day Control BP Baby aspirin daily Medications: New lamotrigine 25 mg orally one a day for 2 weeks, then twice a day; 60 tabs 1RF 30 days Coding Level of Care Code Tele Est Pt Level 4 (11221) Diagnoses Seizure disorder G40.909 Cerebral microvascular disease I67.89
[2025-02-02 11:04] VITALS: BP 153/74; PULSE 65; BMI 23.8
== END 2025-02-02 11:10 | disposition home or self-care (01) ==
LOC: HO.HSM 10:48
PROVIDERS: PCP Nurse Practitioner Adult Health; Visit Provider Psychiatry & Neurology Neurology
DX: G40.909 Epilepsy, unspecified, not intractable, without status epilepticus (principal); I67.89 Other cerebrovascular disease
CPT/HCPCS: 99214

== ENCOUNTER → 2025-02-02 10:47 | Outpatient (BNVA) | payer MEDICARE, SELFPAY | PROVIDERS: PCP Nurse Practitioner Adult Health; Visit Provider Psychiatry & Neurology Neurology | DX: I67.89 Other cerebrovascular disease (principal); G40.909 Epilepsy, unspecified, not intractable, without status epilepticus; Z79.899 Other long term (current) drug therapy | CPT/HCPCS: 99212 ==

== ENCOUNTER 2025-04-06 10:57 | Outpatient (AMB) | payer MEDICARE, SELFPAY ==
--- NOTE | 2025-04-06 11:02 | A.OFFVIS_ITS ---
Intake Visit Reasons: 2m/ sz Allergies morphine Allergy (Unknown, Verified 02/11/22 11:30) Itchiness Effexor Allergy (Unknown, Uncoded 11/07/21 10:58) Itchiness Flexeril Allergy (Unknown, Uncoded 11/07/21 10:58) Itchiness HPI Comments Details: 69 years old man with him mild microvascular disease of brain, one episode of passing out in 2021 with negative cardiac workup and no other obvious explanation of passing out, a routine EEG revealing left hemispheric sharply contoured theta discharges while a 24-hour EEG was unremarkable. She is presenting with dizziness and sleep disturbance. She reports significant improvement in dizziness after commencing lamotrigine treatment, reducing her symptom severity notably. Concurrently, she has developed a sleep disturbance, characterized by early awakening between 3 and 4 AM and total sleep duration of about four hours nightly, without identifiable stress or anxious feelings causing awakening. The dizziness was a constant concern previously, but current medication has significantly alleviated it. 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 [facility] Medical History (Updated 04/06/25 @ 11:08 by Thom Farnsworth MD) Seizure disorder Cerebral microvascular disease Dysconjugate gaze Essential hypertension HTN (hypertension) Surgical History History of hernia repair H/O section Family History Father No problems noted. Mother CHF (congestive heart failure) Social History Alcohol intake: never Patient Tobacco Use Status: Former Tobacco user Years Smoked: 10 +/- service: No Current occupational status: unemployed Review of Systems Const Details: - Neurological: Reports improved dizziness. - Sleep: Reports decreased sleep duration, waking around 3-4 AM with total sleep approximately four hours nightly. Physical Exam Neuro Other: Mental Status: Alert and oriented to person, place, and time. Normal attention. Normal spontaneous speech, fluency, and comprehension. No obvious issues with mood and memory. Affect is appropriate. Cranial Nerves: CN II: Visual garcia full to confrontation, visual acuity intact. CN III, IV, : Pupils equal, round, reactive to light and accommodation. Extraocular movements are normal. CN V: Facial sensation is normal. CN VII: Facial movements symmetrical. CN VIII: Hearing intact to bedside conversation is normal. CN IX, X: Palate elevates symmetrically. CN XI: Shoulder shrug and head turn symmetrical. CN XII: Tongue midline without atrophy or fasciculations. Extrapyramidal: Full facial expressions and blinking. No rigidity. Movements are appropriate with no tremor or abnormality. Speech: Normal; no dysarthria or tremor. Assessment & Plan Assessment & Plan (1) Cerebral microvascular disease: Code(s): I67.89 - Other cerebrovascular disease Category: Medical (2) Seizure disorder: Comment: EEG at off in December 2024: bitemp sharp waves EEG at [facility] [place] in 2021: Left temp sharp theta 24 hr EEG at [facility] [place] in 2021: WNL MRI brain WO at [facility] [place] in 2021: a few small ischemic looking scattered WM lesions CT brain WO at [facility] [place] in 2021: Ok EKG at [facility] [place] in 2021: NSR Echocardiogram at [facility] [place] in 2021: OK 30 days Holter at [facility] [place] in 2021: No a fibb, PACs Stress test at [facility] [place] in 2021: OK. Code(s): G40.909 - Epilepsy, unspecified, not intractable, without status epilepticus Category: Medical (3) Insomnia: Code(s): G47.00 - Insomnia, unspecified Category: Medical Qualifiers: Insomnia type: psychophysiologic Qualified Code(s): F51.04 - Psychophysiologic insomnia Plan Impression: a: Complex partial seizure disorder b: Insomnia, psychosocial Rec: a: Lamotrigine 25mg bid b: Trazodone 25mg PRN at bedtime Medications: New trazodone 25 mg (1/2 x 50 mg) PO BEDTIME PRN 30 tabs 0RF sleep lamotrigine 25 mg PO BID 180 tabs 1RF 90 days Coding Level of Care Code Est Pt Level 4 (74302) Diagnoses Cerebral microvascular disease I67.89 Seizure disorder G40.909 Psychophysiological insomnia F51.04 Insomnia type: psychophysiologic
== END 2025-04-06 11:10 | disposition home or self-care (01) ==
LOC: HO.HSM 10:57
PROVIDERS: PCP Nurse Practitioner Adult Health; Visit Provider Psychiatry & Neurology Neurology
DX: I67.89 Other cerebrovascular disease (principal); G40.909 Epilepsy, unspecified, not intractable, without status epilepticus; F51.04 Psychophysiologic insomnia
CPT/HCPCS: 99214

== ENCOUNTER → 2025-04-06 10:57 | Outpatient (BNVA) | payer MEDICARE, SELFPAY | PROVIDERS: PCP Nurse Practitioner Adult Health; Visit Provider Psychiatry & Neurology Neurology | DX: I67.89 Other cerebrovascular disease (principal); G40.909 Epilepsy, unspecified, not intractable, without status epilepticus; F51.04 Psychophysiologic insomnia | CPT/HCPCS: 99212 ==